=== PATIENT | male | born 1985 | race Caucasian/White ===

== ENCOUNTER 2018-09-20 23:08 | Emergency (ER) | payer MEDICAID ==
[2018-09-21] MEDS: ONDANSETRON (ODT) 4 MG TAB ODT (00:59)
[2018-09-21] MEDS: IBUPROFEN 600 MG TAB PO (01:01)
[2018-09-21 01:07] LABS: ADD MAN DIFF? NO
[2018-09-21 01:08] LABS: BASOPHILS % 0.5 % (0.0-2.0); EOSINOPHILS # 0.2 10^3/ul (0.0-0.5); EOSINOPHILS % 2.5 % (0.0-7.0); HEMATOCRIT 42.3 % (42.0-52.0); HEMOGLOBIN 13.9 g/dl (14.0-18.0); LYMPHOCYTES # 2.5 10^3/ul (0.8-2.9); LYMPHOCYTES % 29.9 % (15.0-51.0); MEAN CORPUSCULAR HGB CONC 32.9 g/dl (32.0-37.0); MEAN CORPUSCULAR VOLUME 82.1 fl (82.0-101.0); MEAN PLATELET VOLUME 9.4 fl (7.4-10.4); MONOCYTE # 0.7 10^3/ul (0.3-0.9); MONOCYTES % 8.2 % (0.0-11.0); NEUTROPHIL # 4.9 10^3/ul (1.6-7.5); NEUTROPHILS % 58.7 % (39.0-77.0); PLATELET COUNT 313 10^3/UL (140-415); RED BLOOD COUNT 5.15 10^6/ul (4.70-6.10); RED CELL DISTRIBUTION WIDTH 13.1 % (11.5-14.5)
[2018-09-21 01:08] LABS: WHITE BLOOD COUNT 8.4 10^3/ul (4.8-10.8)
[2018-09-21 01:33] LABS: ALANINE AMINOTRANSFERASE 31 IU/L (13-69); ALBUMIN 4.6 g/dl (3.3-4.9); ALBUMIN/GLOBULIN RATIO 1.31; ALKALINE PHOSPHATASE 112 IU/L (42-121); ANION GAP 13 (5-13); ASPARTATE AMINO TRANSFERASE 28 IU/L (15-46); BILIRUBIN,INDIRECT 0.2 mg/dl (0-1.1); BILIRUBIN,TOTAL 0.2 mg/dl (0.2-1.3); BLOOD UREA NITROGEN 10 mg/dl (7-20); CALCIUM 9.3 mg/dl (8.4-10.2); CARBON DIOXIDE 26 mmol/L (21-31); CHLORIDE 102 mmol/L (97-110); Estimated GFR > 60 mL/min (>60); GLUCOSE 109 mg/dl (70-220); POTASSIUM 4.1 mmol/L (3.5-5.1); SODIUM 141 mmol/L (135-144); TOTAL PROTEIN 8.1 g/dl (6.1-8.1)
== END 2018-09-21 02:21 | disposition home or self-care (01) ==
LOC: FTE 23:08
DX: R51 Headache (principal)
CPT/HCPCS: 36415; 80053; 85025; 99283

== ENCOUNTER 2018-09-25 22:37 | Emergency (ER) | payer MEDICAID | END 2018-09-26 02:30 | disposition home or self-care (01) | LOC: FTE 22:37 | DX: B34.9 Viral infection, unspecified (principal) | CPT/HCPCS: 99282; Z7502 ==

== ENCOUNTER 2018-10-09 21:03 | Emergency (ER) | payer MEDICAID | END 2018-10-09 22:50 | disposition home or self-care (01) | LOC: FTE 21:03 | DX: L02.416 Cutaneous abscess of left lower limb (principal) | CPT/HCPCS: 99283; Z7502 ==

== ENCOUNTER 2018-10-20 21:57 | Emergency (ER) | payer MEDICAID ==
[2018-10-21] MEDS: DIPHTH/TET/ACEL PERTUSS (ADULT) 0.5 ML VIAL IM* (00:25)
[2018-10-21] MEDS: BACITRACIN 0.9 GM OINT TOP (01:49)
== END 2018-10-21 02:04 | disposition home or self-care (01) ==
LOC: FTE 21:57
DX: L02.416 Cutaneous abscess of left lower limb (principal); B95.62 Methicillin resistant Staphylococcus aureus infection as the cause of diseases classified elsewhere; L03.116 Cellulitis of left lower limb; W57.XXXA Bitten or stung by nonvenomous insect and other nonvenomous arthropods, initial encounter; Y92.9 Unspecified place or not applicable; Z23 Encounter for immunization
CPT/HCPCS: 10060; 90471; 90715; 99283-25

== ENCOUNTER 2018-12-31 20:06 | Emergency (ER) | payer MEDICAID | END 2018-12-31 20:53 | disposition home or self-care (01) | LOC: FTE 20:06 | DX: L02.413 Cutaneous abscess of right upper limb (principal) | CPT/HCPCS: 10060; 99283-25 ==

== ENCOUNTER 2019-01-25 21:00 | Emergency (ER) | payer MEDICAID ==
[2019-01-25] MEDS: ACETAMINOPHEN 325 MG TAB PO (22:12)
== END 2019-01-25 23:15 | disposition home or self-care (01) ==
LOC: FTE 21:00
DX: R07.89 Other chest pain (principal)
CPT/HCPCS: 71045; 93005; 99284-25

== ENCOUNTER 2019-02-13 19:22 | Emergency (ER) | payer MEDICAID ==
[2019-02-13] MEDS: CEFTRIAXONE 1 GM INJ IM (20:42)
[2019-02-13] MEDS: KETOROLAC 60 MG INJ IM (20:43)
[2019-02-13] MEDS: LIDOCAINE 1% (MDV) 20 ML INJ SC (21:03)
== END 2019-02-13 21:15 | disposition home or self-care (01) ==
LOC: FTE 19:22
DX: L03.111 Cellulitis of right axilla (principal)
CPT/HCPCS: 96372; 99284-25

== ENCOUNTER 2019-02-22 16:37 | Emergency (ER) | payer MEDICAID | END 2019-02-22 22:58 | disposition home or self-care (01) | LOC: E/R 16:37 | DX: R07.9 Chest pain, unspecified (principal); F41.9 Anxiety disorder, unspecified | CPT/HCPCS: 71045; 80053; 83690; 84484; 85025; 93005; 99285-25 ==